=== PATIENT | male | born 1965 | race Hispanic/Latino ===

== ENCOUNTER 2025-03-22 18:57 | Emergency (ER) | payer BC ==
[~2025-03-22] VITALS: Ht 177.8 cm; Wt 109.8 kg
[2025-03-22 19:43] LABS: APPEARANCE,URINE CLEAR (CLEAR); GLUCOSE, URINE (UA) NEGATIVE (NEGATIVE); LEUKOCYTE ESTERASE ,URINE 75 Leu/uL (NEGATIVE); NITRATE,URINE NEGATIVE (NEGATIVE); OCCULT BLOOD,URINE +- (TRACE) (NEGATIVE)
[2025-03-22 19:44] LABS: ADD UA MICROSCOPIC YES
[2025-03-22 19:47] LABS: SQUAMOUS EPITHELIAL CELL,UR RARE /HPF (0-2); YEAST,URINE BUDDING RARE /HPF (None Seen)
[2025-03-22 20:18] VITALS: BP 157/80; PULSE 98; RESP 12; TEMP 99.3; O2SAT 98
[2025-03-22] MEDS: PHENAZOpyridine HCL 200 MG TAB 200 MG TABLET PO ONE (20:26)
[2025-03-22] MEDS ORDERED: CEPH500B PO (20:35)
--- NOTE | 2025-03-22 20:35 | ERN ---
ED Note History of Present Illness Stated Complaint: DYSURIA Chief Complaint: Painful Urination Time Seen by MD: 19:00 Time Seen by Midlevel: 19:01 Dictation: 59-year-old male presents to the emergency department due to report of having burning and painful urination that began yesterday. He reports having some chills associated with this. Patient denies having any nausea or vomiting. There is no report of any flank pain or abdominal pain. Patient states that he does not have any penile discharge or scrotal pain. Upon initial evaluation, the patient presents in no acute distress. Allergies: Coded Allergies: No Known Allergies (Unverified Allergy, Unknown, 03/22/25) Emergency Care PRECISION MACHINE OPERATOR: None Home Meds Active Scripts Cephalexin Monohydrate (Keflex) 500 Mg Cap, 500 MG PO TID for 7 Days, #21 CAP Prov:DURAN BAH 03/22/25 Past Medical History Past Medical History: Diabetes-Type II, High Cholesterol, Hypertension Surgical History: None Surgical History Other: SHOULDERM WRIST, HERNIA PSYCH History: no pertinent psych hx RN Note Reviewed/Agreed w/PFSH: Yes Review of System Dictation Constitutional: Chills : Dysuria Initial Vital Sign VS Vital Signs Date Time Temp Pulse Resp B/P (MAP) Pulse Ox O2 Delivery O2 Flow Rate FiO2 03/22/25 18:59 100.0 95 16 182/83 97 Room Air 0 03/22/25 20:18 21 Physical Exam Dictation General: awake, alert, NAD Head/Face: Normocephalic, atraumatic Eyes: PERRL, EOMI ENT: Oral mucosa moist Neck: Trachea midline, supple Cardiovascular: RRR, no edema Respiratory: Symmetrical, non-labored Abdomen: Soft, non-tender, non-distended, no guarding. Skin: Warm, dry, good turgor, no rash MS/Extremity: Pulses equal, no cyanosis, neurovascular intact, FROM Neuro: COAx4, GCS 15, steady gait, Psych: Normal behavior, mood, and affect normal Results (Laboratory/Radiology) Laboratory/Radiology Laboratory Tests Test 03/22/25 19:30 03/22/25 20:10 Urine Color YELLOW (YELLOW) Urine Appearance CLEAR (CLEAR) Urine pH 6.0 (5.0-8.0) Urine Specific [place] 1.029 (1.001-1.031) Urine Protein 20 mg/dL (NEGATIVE) H Urine Glucose (UA) NEGATIVE mg/dL (NEGATIVE) Urine Ketones NEGATIVE mg/dL (NEGATIVE) Urine Occult Blood +- (TRACE) (NEGATIVE) H Urine Nitrate NEGATIVE (NEGATIVE) Urine Bilirubin NEGATIVE mg/dL (NEGATIVE) Urine Urobilinogen 0.2 mg/dL (0.2-1.0) Urine Leukocyte Esterase 75 [place]/uL (NEGATIVE) H Urine RBC 2-5 /HPF (0-1) H Urine WBC 26-50 /HPF (0-1) H Urine Squamous Epithelial Cells RARE /HPF (0-2) Urine Bacteria RARE /HPF (None Seen) Urine Yeast RARE /HPF (None Seen) Whole Blood Glucose 141 MG/DL (70-110) H Labs Reviewed?: Yes ED Course ED Course Orders Procedure Category Date Status Time Urinalysis Profile LAB 03/22/25 Complete 19:14 Bedside Glucose CPOE 03/22/25 Transmitted Fingerstick 19:37 Culture Urine SYLVAIN 03/22/25 In Process 19:44 Ceftriaxone 1g Vial PHA 03/22/25 Complete (Rocephine 1g Inj) 20:30 Phenazopyridine Hcl PHA 03/22/25 Complete 200 Mg Tab (Pyridium 20:30 Current Medications Medications (Trade) Dose Ordered Sig/Flory Route PRN Reason Start Time Stop Time Status Last Admin Dose Admin Ceftriaxone Sodium (ROCEphine 1G INJ) 1 gm ONCE ONCE IM 03/22/25 20:30 03/22/25 20:31 DC 03/22/25 20:26 Phenazopyridine HCl (PYRIdium HCL 200 MG TAB) 100 mg ONCE ONCE PO 03/22/25 20:30 03/22/25 20:31 DC 03/22/25 20:26 Vital Signs Date Time Temp Pulse Resp B/P (MAP) Pulse Ox O2 Delivery O2 Flow Rate FiO2 03/22/25 20:18 99.3 98 12 157/80 98 Room Air* 0 21 03/22/25 18:59 100.0 95 16 182/83 97 Room Air 0 Medical Decision Making MDM MDM: Differential diagnosis: Acute UTI, acute cystitis, acute pyelonephritis. Rationale: Tests considered and ordered secondary to shared decision making include: Previous outside records reviewed: Old ER visits. Risk of complication and/or morbidity or mortality of patient management: None Medications-Per medication reconciliation Need for hospitalization: Patient does not meet criteria for hospitalization. Need for emergency major/minor surgery: No There are no social concerns with this patient. Prescription drug management Prescriptions will include symptomatic care Patient's prior external medical records from other ER visits were reviewed by me as indicated. Prior testing and results from previous visits were reviewed. Prior tests were taken into account with medical decision making and resource utilization, independent historian/historians were used to obtain complete medical history. I independently interpreted the test that were performed, results were reviewed by me and considered findings on radiology if ordered. Medical management and examination interpretation discussions were had by me with other qualified healthcare professionals as indicated for the patient's care. DX & DISP Disposition: Discharge Decision to Admit Time: 20:33 Departure Impression: Primary Impression: Acute UTI Condition: Stable Scripts Phenazopyridine HCl (Pyridium) 100 Mg Tab 1 TAB PO TID for urinary discomfort for 3 Days, #9 TAB 0 Refills Prov: DURAN BAH 03/22/25 Cephalexin Monohydrate (Keflex) 500 Mg Cap 500 MG PO TID for 7 Days, #21 CAP Prov: DURAN BAH 03/22/25 Referrals: PASQUALE MULLEN Jr., MD (PCP) Time of Disposition: 20:38 DURAN BAH Mar 22, 2025 20:35
[2025-03-22] MEDS ORDERED: PHEN-846 PO (20:38)
== END 2025-03-22 20:49 | disposition home or self-care (01) ==
LOC: EDH 18:57
DX: N39.0 Urinary tract infection, site not specified (principal); E11.9 Type 2 diabetes mellitus without complications; E78.00 Pure hypercholesterolemia, unspecified; I10 Essential (primary) hypertension
CPT/HCPCS: 99284; 87086 ×2; 87186; 82948; 81001; 96372; J0696